=== PATIENT | female | born 1980 | race Caucasian/White ===

== ENCOUNTER 2018-04-12 16:12 | Observation (INO) ==
[2018-04-12] MEDS ORDERED: Temazepam 15 MG Capsule PO PRN (22:52)
[2018-04-12] MEDS ORDERED: Acetaminophen 325 MG Tablet PO PRN (22:52)
[2018-04-12] MEDS ORDERED: Bisacodyl 10 MG Supp RECTAL PRN (22:52)
[2018-04-12] MEDS ORDERED: Morphine Sulfate Inj 2 MG/ML Vial IV.PUSH PRN (22:53)
[2018-04-12] MEDS ORDERED: Sod Chloride 0.9% Inj 1,000 ML IV.CONT SCH (23:00)
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
[2018-04-12 23:35] LABS: Baso # (Auto) 0.1 th/mm3 (0.0-0.2); Eos # (Auto) 0.4 th/mm3 (0.0-0.4); Eos % (Auto) 5.1 % (0.0-4.0); Hematocrit 38.9 % (35.0-46.0); Hemoglobin 12.7 gm/dL (11.6-15.3); Lymph # (Auto) 2.7 th/mm3 (1.0-4.8); Lymph % (Auto) 30.4 % (9.0-44.0); Mean Corpuscular HGB Conc 32.7 % (32.0-36.0); Mean Corpuscular Hemoglobin 27.9 pg (27.0-34.0); Mean Corpuscular Volume 85.3 fL (80.0-100.0); Mean Platelet Volume 9.8 fL (7.0-11.0); Mono # (Auto) 0.5 th/mm3 (0.0-0.9); Mono % (Auto) 5.6 % (0.0-8.0); Neut # (Auto) 5.1 th/mm3 (1.8-7.7); Neut % (Auto) 57.9 % (16.0-70.0); Platelet Count 208 th/mm3 (150-450); Red Blood Count 4.56 mil/mm3 (4.00-5.30); Red Cell Distribution Width 14.2 % (11.6-17.2); White Blood Count 8.8 th/mm3 (4.0-11.0)
[2018-04-12 23:40] LABS: Alanine Aminotransferase 18 U/L (10-53); Albumin 3.5 g/dL (3.4-5.0); Anion Gap 8 meq/L (5-15); Aspartate Aminotransferase 9 U/L (15-37); Blood Urea Nitrogen 10 mg/dL (7-18); Calcium 8.8 mg/dL (8.5-10.1); Carbon Dioxide 27.4 meq/L (21.0-32.0); Chloride 108 meq/L (98-107); Glomerular Filtration Rate 72 mL/min (>89); Glucose,Random 86 mg/dL (74-106); Potassium 3.8 meq/L (3.5-5.1); Sodium 143 meq/L (136-145)
[2018-04-12 23:42] LABS: Alkaline Phosphatase 71 U/L (45-117); Total Protein 7.1 g/dL (6.4-8.2)
[2018-04-13] MEDS: Senna/Docusate Sodium 8.6/50 MG Tablet PO SCH ×2 (08:25→22:36)
[2018-04-13] MEDS ORDERED: Lidocaine PF 1% Inj 5 ML Syringe INFILTRATN ONE (12:00)
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
[2018-04-13] MEDS ORDERED: Chlorhexidine Gluconate 2% 1 Pack (2 Cloths) TOPICAL SCH (14:15)
[2018-04-13] MEDS ORDERED: Metoprolol Tartrate 25 MG Tablet PO SCH (14:15)
[2018-04-13] MEDS ORDERED: Lidocaine 2% Inj 50 ML Vial ONE (14:25)
[2018-04-13] MEDS ORDERED: Bupivacaine PF 0.5% Inj 30 ML Vial ONE (14:25)
[2018-04-13] MEDS ORDERED: Neomycin/Polymyxin G.U. Irrigant 1 ML Ampul ONE (14:26)
[2018-04-13] MEDS ORDERED: Sodium Chlor 0.9% Inj 500 ML IV.SIG SCH (15:00)
[2018-04-13] MEDS ORDERED: Morphine Inj 4 MG/ML Vial ONE ×2 (16:10)
[2018-04-13] MEDS ORDERED: fentaNYL Citrate Inj 100 MCG/2 ML Ampul ONE (16:10)
[2018-04-13] MEDS ORDERED: *Meperidine Inj 25 MG/ML Vial PERIprocedural Use ONLY ONE (16:11)
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
[2018-04-13] MEDS: Morphine Inj 4 MG/ML Vial IV.PUSH PRN (22:36)
[2018-04-14] MEDS: Morphine Inj 4 MG/ML Vial IV.PUSH PRN (04:00)
[2018-04-14] MEDS: Senna/Docusate Sodium 8.6/50 MG Tablet PO SCH (09:02)
[2018-04-14] MEDS ORDERED: Naloxone Inj 0.4 MG/ML Vial IV.PUSH PRN (09:04)
[2018-04-14] MEDS ORDERED: oxyCODONE/Acetaminophen 10/325 Tablet PO PRN (09:04)
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
== END 2018-04-14 14:26 | disposition home or self-care (01) ==
LOC: NEDA 16:12 → NEPC 16:12 → NEPHCDU 16:12 → NEDA 04-13 → NEPHCDU 04-13 00:15
PROVIDERS: ADMIT Internal Medicine; ATTEND Internal Medicine